=== PATIENT | male | born 1995 | race Caucasian/White ===

== ENCOUNTER 2016-09-24 23:29 | Emergency (ER) | payer BC, OTHER ==
[~2016-09-24] VITALS: Ht 182.9 cm; Wt 107.0 kg
[2016-09-24 23:34] VITALS: Ht 182.9 cm; Wt 107.0 kg
[2016-09-24] MEDS ORDERED: SOD CHLORIDE 0.9% 100 ML ONE (23:58)
[2016-09-24] MEDS ORDERED: IOHEXOL 300MG/ML 150 ML BTL ONE (23:58)
[2016-09-25] MEDS ORDERED: DIPHTH/TET/ACEL PERTUSS (ADULT) 0.5 ML VIAL IM* ONE
[2016-09-25] MEDS ORDERED: morphine 4 MG/ML VIAL IV STA ×2 (00:01→03:51)
[2016-09-25] MEDS ORDERED: morphine 4 MG/ML VIAL IV ONE (00:12)
[2016-09-25] MEDS ORDERED: ONDANSETRON 4 MG INJ IV ONE (00:12)
[2016-09-25 00:14] LABS: CHLORIDE 100 mmol/L (97-110); POTASSIUM 3.8 mmol/L (3.5-5.1); SODIUM 143 mmol/L (135-144)
[2016-09-25 00:15] LABS: INR 0.95; PROTIME 12.7 Sec (12.2-14.2)
[2016-09-25 00:16] LABS: PARTIAL THROMBOPLASTIN TIME 27.4 Sec (25.0-35.0)
[2016-09-25 00:17] LABS: ANION GAP 16 (8-16); BLOOD UREA NITROGEN 18 mg/dl (7-20); CARBON DIOXIDE 31 mmol/L (21-31); CREATININE 0.87 mg/dl (0.61-1.24)
[2016-09-25 00:18] LABS: CALCIUM 9.5 mg/dl (8.4-10.2); GLUCOSE 98 mg/dl (70-220)
[2016-09-25 00:22] LABS: BASOPHILS % 0.4 % (0.0-2.0); EOSINOPHILS % 0.4 % (0.0-7.0); HEMATOCRIT 45.3 % (42.0-52.0); HEMOGLOBIN 15.8 g/dl (14.0-18.0); LYMPHOCYTES # 1.9 10^3/ul (0.8-2.9); LYMPHOCYTES % 16.5 % (18.0-55.0); MEAN CORPUSCULAR HEMOGLOBIN 31.2 pg (29.0-33.0); MEAN CORPUSCULAR VOLUME 89.3 fl (72.0-104.0); MEAN PLATELET VOLUME 9.7 fl (7.4-10.4); MONOCYTE # 1.1 10^3/ul (0.3-0.9); MONOCYTES % 9.4 % (0.0-13.0); NEUTROPHIL # 8.3 10^3/ul (1.6-7.5); NEUTROPHILS % 73.3 % (30.0-74.0); PLATELET COUNT 242 10^3/UL (140-440); RED BLOOD COUNT 5.07 10^6/ul (4.70-6.10); RED CELL DISTRIBUTION WIDTH 12.6 % (11.5-14.5); UNCORRECTED WBC 11.3 10^3/ul (4.8-10.8); WHITE BLOOD COUNT 11.3 10^3/ul (4.8-10.8)
[2016-09-25 00:38] LABS: TROPONIN-I < 0.012 ng/ml (0.00-0.12)
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
[2016-09-25 00:40] LABS: CONDITION 1
[2016-09-25] MEDS ORDERED: CEFAZOLIN 2 GM/50 ML (PMX) 50 ML IVPB ONE (01:00)
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
[2016-09-25] MEDS ORDERED: BACTDS PO (03:37)
[2016-09-25] MEDS ORDERED: IBUP800T25 PO (03:37)
[2016-09-25] MEDS ORDERED: CEPH-443 PO (03:37)
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
[2016-09-25 04:15] VITALS: BP 125/89; PULSE 90; RESP 18; TEMP 98.6
== END 2016-09-25 04:17 | disposition home or self-care (01) ==
LOC: E/R 23:29
DX: S31.03 Puncture wound without foreign body of lower back and pelvis (principal); F17.210 Nicotine dependence, cigarettes, uncomplicated; R40.2142 Coma scale, eyes open, spontaneous, at arrival to emergency department; R40.2252 Coma scale, best verbal response, oriented, at arrival to emergency department; R40.2362 Coma scale, best motor response, obeys commands, at arrival to emergency department; R07.9 Chest pain, unspecified; X99.1XXA Assault by knife, initial encounter; Z04.71 Encounter for examination and observation following alleged adult physical abuse; Z71.6 Tobacco abuse counseling
CPT/HCPCS: 71010; 71260; 74177; 80048; 84484; 85025; 85610; 85730; 90715; 93005; J0690; J2270; Q9967; Z7610; 36415; 90471; 96365; 96375; 96376

== ENCOUNTER 2018-10-16 22:14 | Emergency (ER) | payer SELFPAY ==
[~2018-10-16] VITALS: Ht 180.3 cm; Wt 109.9 kg
[~2018-10-16 22:14] MED LIST: BACTDS PO; CEPH-443 PO; IBUP800T48 PO
[2018-10-16 22:22] VITALS: BP 167/127; PULSE 83; RESP 16; Ht 180.3 cm; Wt 109.9 kg
== END 2018-10-16 23:30 | disposition left against medical advice (07) ==
LOC: E/R 22:14
DX: Z53.21 Procedure and treatment not carried out due to patient leaving prior to being seen by health care provider (principal)